=== PATIENT | male | born 1985 | race Caucasian/White ===

== ENCOUNTER 2017-01-13 14:01 | Emergency (ER) | payer OTHER ==
--- NOTE | 2017-01-13 14:33 | ED ---
Male Urogenital HPI - General Chief complaint: Urogenital Stated complaint: Male Time Seen by Provider: 01/13/17 14:18 Source: patient Mode of arrival: ambulatory Limitations: no limitations - History of Present Illness Initial comments: This 31-year-old white male presents with a complaint of some urinary frequency and urgency but denies any dysuria or hematuria. He states that it started approximately 3 days ago. He denies any penile discharge. There is no abdominal or flank pain. No fevers or chills. He denies any previous similar incidents. He has no known problems in regard to his collecting system or prostate. No other complaints or modifying factors. - Related Data Previous Rx's Medication Instructions Recorded Ciprofloxacin HCl [Cipro] 500 mg PO Q12HR #14 tablet 01/13/17 Phenazopyridine [Pyridium] 200 mg PO TID #9 tablet 01/13/17 Allergies Allergy/AdvReac Type Severity Reaction Status Date / Time No Known Allergies Allergy Verified 01/13/17 14:34 Review of Systems ROS Statement: Those systems with pertinent positive or pertinent negative responses have been documented in the HPI. ROS Other: All systems not noted in ROS Statement are negative. Past Medical History Past Medical History: No Reported History History of Any Multi-Drug Resistant Organisms: None Reported Past Surgical History: No Surgical Hx Reported Past Psychological History: No Psychological Hx Reported Smoking Status: Never smoker Past Alcohol Use History: None Reported Past Drug Use History: Marijuana General Exam - General Exam Comments Initial Comments: GENERAL: The patient is well nourished and well hydrated. VITAL SIGNS: Heart rate, blood pressure, respiratory rate reviewed as recorded in nurse's notes. EYES: Pupils are round and reactive. Extraocular movements are intact. No conjunctival / lid redness or swelling. ENT: No external evidence of injury, swelling, or ecchymosis. Airway is patent. Throat is clear. NECK: Nontender. No swelling or evidence of injury. No subcutaneous emphysema. Trachea is midline. No thyroid mass. HEART: Regular rate and rhythm. Good peripheral pulses. LUNGS/CHEST: Breath sounds clear and equal bilaterally. No rales, rhonchi, or wheezes. No ecchymosis, subcutaneous emphysema, or tenderness. ABDOMEN: Abdomen soft without tenderness. No palpable masses or organomegaly. No peritoneal signs. No abdominal wall swelling or ecchymosis. EXTREMITIES: No extremity tenderness. Normal muscle tone and function. No thoracolumbar tenderness. NEUROLOGIC: Sensation is grossly intact. Cranial nerve exam reveals face is symmetrical, tongue is midline, speech is clear. SKIN: No abrasions or ecchymosis is noted. No induration or masses noted. PSYCHIATRIC: Alert and oriented. Appropriate behavior and judgment. Limitations: no limitations Course Vital Signs 01/13/17 14:08 Temperature 98.2 F Pulse Rate 95 Respiratory 16 Rate Blood Pressure 134/90 O2 Sat by Pulse 100 Oximetry Medical Decision Making - Medical Decision Making The patient was seen and examined. All diagnostics were reviewed. The urinalysis does show evidence of urinary tract infection. He'll be treated for this. He requests a work note and this will be given as well. He leaves in no identifiable distress. He is instructed to follow up with the cultures in 3 days with a primary physician. - Lab Data Lab Results 01/13/17 Range/Units 14:53 Urine Color Light Yellow Urine Appearance Cloudy (Clear) Urine pH 8.0 (5.0-8.0) Ur Specific [place] 1.013 (1.001-1.035) Urine Protein Negative (Negative) Urine Glucose (UA) Negative (Negative) Urine Ketones Negative (Negative) Urine Blood Negative (Negative) Urine Nitrite Negative (Negative) Urine Bilirubin Negative (Negative) Urine Urobilinogen <2.0 (<2.0) mg/dL Ur Leukocyte Esterase Negative (Negative) Urine WBC 5 (0-5) /hpf Amorphous Sediment Rare H (None) /hpf Urine Bacteria Many H (None) /hpf Disposition Clinical Impression: UTI (urinary tract infection) Disposition: HOME SELF-CARE Condition: Good Instructions: Urinary Tract Infection in Men (ED) Prescriptions: Ciprofloxacin HCl [Cipro] 500 mg PO Q12HR #14 tablet Phenazopyridine [Pyridium] 200 mg PO TID #9 tablet Referrals: None,Stated [Primary Care Provider] - 01/16/17 Time of Disposition: 15:25
[2017-01-13 15:15] LABS: Amorphous Sediment,Urine Rare /hpf; Appearance,Urine Cloudy (Clear); Bacteria,Urine Many /hpf; Bilirubin,Urine Negative (Negative); Glucose,Urine (UA) Negative (Negative); Ketones,Urine Negative (Negative); Leukocyte Esterase,Urine Negative (Negative); Nitrite,Urine Negative (Negative); Particle Count 29079; Protein,Urine Negative (Negative); Specific Gravity,Urine 1.013 (1.001-1.035); UA Billing (MACRO vs. MICRO) MICRO; Urobilinogen,Urine <2.0 mg/dL (<2.0); WBC,Urine 5 /hpf (0-5)
[2017-01-13 15:38] VITALS: BP 133/75; PULSE 85; RESP 18; TEMP 98.6
== END 2017-01-13 15:38 | disposition home or self-care (01) ==
LOC: EC 14:01
DX: N39.0 Urinary tract infection, site not specified (principal)
CPT/HCPCS: 81001; 87086; 99283

== ENCOUNTER 2017-12-15 19:15 | Emergency (ER) | payer BC ==
[2017-12-15 19:28] VITALS: TEMP 99.5
[2017-12-15] MEDS ORDERED: SODIUM CHLORIDE 0.9% 1,000 ML IV STA (21:36)
[2017-12-15 22:14] LABS: Basophils # (A) 0.1 k/uL (0-0.2); Basophils % (A) 1 %; Eosinophils # (A) 0.1 k/uL (0-0.7); Eosinophils % (A) 1 %; HCT 46.6 % (39.0-53.0); HGB 15.8 gm/dL (13.0-17.5); Lymphocytes # (A) 1.7 k/uL (1.0-4.8); Lymphocytes % (A) 17 %; MCH 29.5 pg (25.0-35.0); MCV 86.8 fL (80.0-100.0); Mean Platelet Volume 6.5; Monocytes # (A) 0.8 k/uL (0-1.0); Monocytes % (A) 8 %; Neutrophils # (A) 7.1 k/uL (1.3-7.7); Neutrophils % (A) 71 %; Platelet Count 232 k/uL (150-450); RBC 5.37 m/uL (4.30-5.90); RDW 13.1 % (11.5-15.5); WBC 9.9 k/uL (3.8-10.6)
[2017-12-15 22:22] LABS: ALT 32 U/L (21-72); AST 25 U/L (17-59); Albumin 4.4 g/dL (3.5-5.0); Alkaline Phosphatase 47 U/L (38-126); Anion Gap 6 mmol/L; Blood Urea Nitrogen 14 mg/dL (9-20); Calcium 9.5 mg/dL (8.4-10.2); Carbon Dioxide 27 mmol/L (22-30); Chloride 110 mmol/L (98-107); Glucose 81 mg/dL (74-99); Lipase 154 U/L (23-300); Potassium 3.8 mmol/L (3.5-5.1); Sodium 143 mmol/L (137-145); Total Bilirubin 0.3 mg/dL (0.2-1.3); Total Protein 6.6 g/dL (6.3-8.2)
[2017-12-15 22:32] LABS: INR 1.1 (<1.2); Partial Thromboplastin Time 24.8 sec (22.0-30.0); Prothrombin Time 10.9 sec (9.0-12.0)
[2017-12-15 22:41] LABS: Creatine Kinase 136 U/L (55-170)
[2017-12-15 22:54] LABS: Creatine Kinase MB 2.1 ng/mL (0.0-2.4); Troponin I <0.012 ng/mL (0.000-0.034)
[2017-12-15 23:04] LABS: Amorphous Sediment,Urine Rare /hpf; Appearance,Urine Cloudy (Clear); Bilirubin,Urine Negative (Negative); Blood,Urine Negative (Negative); Color,Urine Light Yellow; Glucose,Urine (UA) Negative (Negative); Ketones,Urine Negative (Negative); Leukocyte Esterase,Urine Negative (Negative); Mucus,Urine Rare /hpf; Nitrite,Urine Negative (Negative); PH, Urine 6.5 (5.0-8.0); Protein,Urine Negative (Negative); Specific Gravity,Urine 1.013 (1.001-1.035); Squamous Epithelial Cell,Urine <1 /hpf (0-4); Urobilinogen,Urine <2.0 mg/dL (<2.0); WBC,Urine <1 /hpf (0-5)
--- NOTE | 2017-12-15 23:17 | ED ---
Abdominal Pain HPI - General Chief Complaint: Abdominal Pain Stated Complaint: blood in stool Time Seen by Provider: 12/15/17 20:55 Source: patient Mode of arrival: ambulatory Limitations: no limitations - History of Present Illness Initial Comments: 32-year-old male patient presents the emergency department today for complaints of abdominal discomfort and bloody stools. Patient states that early this afternoon he had an episode of diarrhea, states when he wiped he noticed bright red blood on the toilet paper. States he did not look in the toilet so is unable to quantify how much bleeding he had. Patient states that he had 2 further episodes of diarrhea with presence of bright red blood while at work this evening. Patient states he is having lower abdominal cramping. He is also reporting a sharp right upper quadrant abdominal pain that started couple of weeks ago. States that the pain is constantly there and hurts worse when he pushes over the area. Patient denies any nausea, vomiting, dizziness, weakness , chest pain, shortness breath, hematuria, dysuria, urinary frequency, or urinary urgency. Patient states that he has been having an issue where he has to sit down to urinate, this started a couple of months ago he has not figured out the cause for this. Patient denies any history of GI bleeding or hemorrhoids. Denies any recent weight loss. Denies any significant alcohol use. Patient does report a family history of colon cancer, with his uncle dying at the age of 43. Patient denies any recent rash, back pain, numbness, tingling, headache, visual changes, or any other complaints. - Related Data Home Medications Medication Instructions Recorded Confirmed No Known Home Medications 12/15/17 12/15/17 Allergies Allergy/AdvReac Type Severity Reaction Status Date / Time No Known Allergies Allergy Verified 12/15/17 20:39 Review of Systems ROS Statement: Those systems with pertinent positive or pertinent negative responses have been documented in the HPI. ROS Other: All systems not noted in ROS Statement are negative. Past Medical History Past Medical History: No Reported History History of Any Multi-Drug Resistant Organisms: None Reported Past Surgical History: No Surgical Hx Reported Past Psychological History: No Psychological Hx Reported Smoking Status: Never smoker Past Alcohol Use History: None Reported Past Drug Use History: Marijuana General Exam Limitations: no limitations General appearance: alert, in no apparent distress, other (This is a well- developed, well-nourished adult male patient in no acute distress. Vital signs upon presentation afternoon and 0.5F, pulse 114, respirations 20, blood pressure 143/84, pulse ox 99% on room air.) Eye exam: Present: normal appearance, PERRL, EOMI. Absent: scleral icterus, conjunctival injection, periorbital swelling ENT exam: Present: normal exam, normal oropharynx, mucous membranes moist Respiratory exam: Present: normal lung sounds bilaterally. Absent: respiratory distress, wheezes, rales, rhonchi, stridor Cardiovascular Exam: Present: regular rate, normal rhythm, normal heart sounds. Absent: systolic murmur, diastolic murmur, rubs, gallop, clicks GI/Abdominal exam: Present: soft, tenderness (Right upper quadrant tenderness), normal bowel sounds. Absent: distended, guarding, rebound, rigid Rectal exam: Present: normal inspection, heme (+) stool. Absent: hemorrhoids Neurological exam: Present: alert, oriented X3, CN II-XII intact Psychiatric exam: Present: normal affect, normal mood Skin exam: Present: warm, dry, intact, normal color. Absent: rash Course Vital Signs 12/15/17 12/15/17 19:26 23:29 Temperature 99.5 F Pulse Rate 114 H 100 Respiratory 20 17 Rate Blood Pressure 143/84 142/89 O2 Sat by Pulse 99 97 Oximetry Medical Decision Making - Medical Decision Making 32-year-old male patient presented to the emergency department today for evaluation of a GI bleed. Physical examination did reveal some right upper quadrant abdominal tenderness. Did perform rectal examination had obvious bright red blood per rectum. There is no evidence of hemorrhoids. Labs reviewed and are unremarkable. Hemoglobin is within normal range. EKG was obtained and showed normal sinus rhythm with a sinus arrhythmia. Patient was given some IV fluids. Upon reevaluation he is doing well. I did discuss findings and results. We did discuss colitis as a possible cause of his symptoms however given patient's family history of colon cancer this is a concern as well. He is instructed to follow-up with a driving teacher for recheck as soon as possible. Given his urinary symptoms that have been going on for the last couple of months he is instructed to follow-up with the urologist as well. He is instructed to follow up with the primary care physician for recheck in 1-2 days. Patient be discharged in stable condition. Return parameters discussed in detail. He verbalizes understanding and agrees with this plan. - Lab Data Result diagrams: 12/15/17 21:57 12/15/17 21:57 Lab Results 12/15/17 12/15/17 12/15/17 Range/Units 21:52 21:57 21:57 WBC 9.9 (3.8-10.6) k/uL RBC 5.37 (4.30-5.90) m/uL Hgb 15.8 (13.0-17.5) gm/dL Hct 46.6 (39.0-53.0) % MCV 86.8 (80.0-100.0) fL MCH 29.5 (25.0-35.0) pg MCHC 34.0 (31.0-37.0) g/dL RDW 13.1 (11.5-15.5) % Plt Count 232 (150-450) k/uL Neutrophils % 71 % Lymphocytes % 17 % Monocytes % 8 % Eosinophils % 1 % Basophils % 1 % Neutrophils # 7.1 (1.3-7.7) k/uL Lymphocytes # 1.7 (1.0-4.8) k/uL Monocytes # 0.8 (0-1.0) k/uL Eosinophils # 0.1 (0-0.7) k/uL Basophils # 0.1 (0-0.2) k/uL PT (9.0-12.0) sec INR (<1.2) APTT (22.0-30.0) sec Sodium (137-145) mmol/L Potassium (3.5-5.1) mmol/L Chloride (98-107) mmol/L Carbon Dioxide (22-30) mmol/L Anion Gap mmol/L BUN (9-20) mg/dL Creatinine (0.66-1.25) mg/dL Est GFR (CKD-EPI)AfAm (>60 ml/min/1.73 sqM) Est GFR (CKD-EPI)NonAf (>60 ml/min/1.73 sqM) Glucose (74-99) mg/dL Calcium (8.4-10.2) mg/dL Total Bilirubin (0.2-1.3) mg/dL AST (17-59) U/L ALT (21-72) U/L Alkaline Phosphatase (38-126) U/L Total Creatine Kinase 136 (55-170) U/L CK-MB (CK-2) 2.1 (0.0-2.4) ng/mL CK-MB (CK-2) Rel Index 1.5 Troponin I <0.012 (0.000-0.034) ng/mL Total Protein (6.3-8.2) g/dL Albumin (3.5-5.0) g/dL Lipase (23-300) U/L Urine Color Urine Appearance (Clear) Urine pH (5.0-8.0) Ur Specific [place] (1.001-1.035) Urine Protein (Negative) Urine Glucose (UA) (Negative) Urine Ketones (Negative) Urine Blood (Negative) Urine Nitrite (Negative) Urine Bilirubin (Negative) Urine Urobilinogen (<2.0) mg/dL Ur Leukocyte Esterase (Negative) Urine WBC (0-5) /hpf Ur Squamous Epith Cells (0-4) /hpf Amorphous Sediment (None) /hpf Urine Mucus (None) /hpf Stool Occult Blood Positive (Negative) 12/15/17 12/15/17 12/15/17 Range/Units 21:57 21:57 22:54 WBC (3.8-10.6) k/uL RBC (4.30-5.90) m/uL Hgb (13.0-17.5) gm/dL Hct (39.0-53.0) % MCV (80.0-100.0) fL MCH (25.0-35.0) pg MCHC (31.0-37.0) g/dL RDW (11.5-15.5) % Plt Count (150-450) k/uL Neutrophils % % Lymphocytes % % Monocytes % % Eosinophils % % Basophils % % Neutrophils # (1.3-7.7) k/uL Lymphocytes # (1.0-4.8) k/uL Monocytes # (0-1.0) k/uL Eosinophils # (0-0.7) k/uL Basophils # (0-0.2) k/uL PT 10.9 (9.0-12.0) sec INR 1.1 (<1.2) APTT 24.8 (22.0-30.0) sec Sodium 143 (137-145) mmol/L Potassium 3.8 (3.5-5.1) mmol/L Chloride 110 H (98-107) mmol/L Carbon Dioxide 27 (22-30) mmol/L Anion Gap 6 mmol/L BUN 14 (9-20) mg/dL Creatinine 0.90 (0.66-1.25) mg/dL Est GFR (CKD-EPI)AfAm >90 (>60 ml/min/1.73 sqM) Est GFR (CKD-EPI)NonAf >90 (>60 ml/min/1.73 sqM) Glucose 81 (74-99) mg/dL Calcium 9.5 (8.4-10.2) mg/dL Total Bilirubin 0.3 (0.2-1.3) mg/dL AST 25 (17-59) U/L ALT 32 (21-72) U/L Alkaline Phosphatase 47 (38-126) U/L Total Creatine Kinase (55-170) U/L CK-MB (CK-2) (0.0-2.4) ng/mL CK-MB (CK-2) Rel Index Troponin I (0.000-0.034) ng/mL Total Protein 6.6 (6.3-8.2) g/dL Albumin 4.4 (3.5-5.0) g/dL Lipase 154 (23-300) U/L Urine Color Light Yellow Urine Appearance Cloudy (Clear) Urine pH 6.5 (5.0-8.0) Ur Specific [place] 1.013 (1.001-1.035) Urine Protein Negative (Negative) Urine Glucose (UA) Negative (Negative) Urine Ketones Negative (Negative) Urine Blood Negative (Negative) Urine Nitrite Negative (Negative) Urine Bilirubin Negative (Negative) Urine Urobilinogen <2.0 (<2.0) mg/dL Ur Leukocyte Esterase Negative (Negative) Urine WBC <1 (0-5) /hpf Ur Squamous Epith Cells <1 (0-4) /hpf Amorphous Sediment Rare H (None) /hpf Urine Mucus Rare H (None) /hpf Stool Occult Blood (Negative) Disposition Clinical Impression: Lower GI bleed, Abdominal pain Disposition: HOME SELF-CARE Condition: Good Instructions: Gastrointestinal Bleeding (ED), Abdominal Pain (ED) Additional Instructions: Increase fluids. Follow up with gastroenterology for further evaluation as soon as possible. Return here immediately for any new, worsening, or concerning symptoms. Is patient prescribed a controlled substance at d/c from ED?: No Referrals: Ameya Gillespie MD [STAFF PHYSICIAN] - 1-2 days Cristo Parks MD [STAFF PHYSICIAN] - 1-2 days Time of Disposition: 23:17
[2017-12-15 23:30] VITALS: BP 142/89; PULSE 100; RESP 17
== END 2017-12-15 23:30 | disposition home or self-care (01) ==
LOC: EC 19:15
DX: K92.2 Gastrointestinal hemorrhage, unspecified (principal); R10.11 Right upper quadrant pain; R10.30 Lower abdominal pain, unspecified; R19.7 Diarrhea, unspecified
CPT/HCPCS: 36415; 80053; 81001; 82272; 82550; 82553; 83690; 84484; 85025; 85610; 85730; 93005; 96360; 99284

== ENCOUNTER 2020-11-13 11:35 | Observation (INO) | payer BC, OTHER ==
[2020-11-13] MEDS ORDERED: MORPHINE SULFATE 4 MG/ML SYRINGE IV STA (13:15)
[2020-11-13] MEDS ORDERED: ONDANSETRON 4 MG/2 ML VIAL IVP STA (13:15)
[2020-11-13] MEDS ORDERED: SODIUM CHLORIDE 0.9% 2,000 ML IV STA (13:15)
--- NOTE | 2020-11-13 13:15 | ED ---
Abdominal Pain HPI - General Chief Complaint: Abdominal Pain Stated Complaint: fever/vomiting/dizzy Time Seen by Provider: 11/13/20 12:32 Source: patient Mode of arrival: ambulatory Limitations: no limitations - History of Present Illness Initial Comments: 35-year-old male with no past medical history of presents emergency Department with reported right upper quadrant abdominal pain, nausea and vomiting. Patient states the symptoms have been present for the past 2 days. He has had diaphoresis and chills. He has not had a bowel movement in several days. Patient unable to hold on any type of food. Vomiting is nonbilious and nonbloody. No history of similar in the past. Denies any abdominal surgeries. Has not taken any medications for his symptoms. No ripping or tearing sensation to his back. Denies any urinary changes. No other alleviating, Perceptin or modifying factors - Related Data Home Medications Medication Instructions Recorded Confirmed No Known Home Medications 12/15/17 11/13/20 Allergies Allergy/AdvReac Type Severity Reaction Status Date / Time No Known Allergies Allergy Verified 11/13/20 13:21 Review of Systems ROS Statement: Those systems with pertinent positive or pertinent negative responses have been documented in the HPI. ROS Other: All systems not noted in ROS Statement are negative. Past Medical History Past Medical History: No Reported History History of Any Multi-Drug Resistant Organisms: None Reported Past Surgical History: No Surgical Hx Reported Past Psychological History: No Psychological Hx Reported Smoking Status: Never smoker Past Alcohol Use History: None Reported Past Drug Use History: Marijuana General Exam Limitations: no limitations Course Vital Signs 11/13/20 12:07 Temperature 98.7 F Pulse Rate 97 Respiratory 18 Rate Blood Pressure 129/85 O2 Sat by Pulse 99 Oximetry Medical Decision Making - Medical Decision Making Upon arrival patient's placed in room 17. Thorough history and physical exam is performed. IV is established. Laboratory studies are conducted. Patient received 2 L of normal saline. 4 mg of morphine administered as well as 4 mg of Zofran. Retrace is reviewed and demonstrate an elevated AST and ALT. CT the abdomen and pelvis demonstrates duodenitis versus duodenal ulcer. Gallbladder ultrasound demonstrates heterogeneous liver. Patient is reevaluated and continu es to have abdominal pain. Provided the patient with 1 mg of Dilaudid. Spoke with Dr. Forrest who agreed to admission. Patient started on antibiotics, pain control and antiemetics. Patient currently awaiting the floor - Lab Data Result diagrams: 11/13/20 13:24 11/13/20 13:24 Lab Results 11/13/20 11/13/20 11/13/20 Range/Units 13:24 13:24 13:24 WBC 4.2 (3.8-10.6) k/uL RBC 5.79 (4.30-5.90) m/uL Hgb 16.3 (13.0-17.5) gm/dL Hct 49.2 (39.0-53.0) % MCV 85.0 (80.0-100.0) fL MCH 28.2 (25.0-35.0) pg MCHC 33.2 (31.0-37.0) g/dL RDW 13.5 (11.5-15.5) % Plt Count 105 L (150-450) k/uL MPV 8.1 Neutrophils % 75 % Lymphocytes % 14 % Monocytes % 6 % Eosinophils % 1 % Basophils % 1 % Neutrophils # 3.1 (1.3-7.7) k/uL Lymphocytes # 0.6 L (1.0-4.8) k/uL Monocytes # 0.2 (0-1.0) k/uL Eosinophils # 0.0 (0-0.7) k/uL Basophils # 0.0 (0-0.2) k/uL Sodium 138 (137-145) mmol/L Potassium 3.1 L (3.5-5.1) mmol/L Chloride 101 (98-107) mmol/L Carbon Dioxide 29 (22-30) mmol/L Anion Gap 8 mmol/L BUN 10 (9-20) mg/dL Creatinine 0.61 L (0.66-1.25) mg/dL Est GFR (CKD-EPI)AfAm >90 (>60 ml/min/1.73 sqM) Est GFR (CKD-EPI)NonAf >90 (>60 ml/min/1.73 sqM) Glucose 110 H (74-99) mg/dL Plasma Lactic Acid [place] 0.7 (0.7-2.0) mmol/L Calcium 8.7 (8.4-10.2) mg/dL Total Bilirubin 1.4 H (0.2-1.3) mg/dL AST 263 H (17-59) U/L ALT 393 H (4-49) U/L Alkaline Phosphatase 161 H (38-126) U/L Troponin I (0.000-0.034) ng/mL Total Protein 6.3 (6.3-8.2) g/dL Albumin 3.8 (3.5-5.0) g/dL Lipase 77 (23-300) U/L 11/13/20 Range/Units 13:24 WBC (3.8-10.6) k/uL RBC (4.30-5.90) m/uL Hgb (13.0-17.5) gm/dL Hct (39.0-53.0) % MCV (80.0-100.0) fL MCH (25.0-35.0) pg MCHC (31.0-37.0) g/dL RDW (11.5-15.5) % Plt Count (150-450) k/uL MPV Neutrophils % % Lymphocytes % % Monocytes % % Eosinophils % % Basophils % % Neutrophils # (1.3-7.7) k/uL Lymphocytes # (1.0-4.8) k/uL Monocytes # (0-1.0) k/uL Eosinophils # (0-0.7) k/uL Basophils # (0-0.2) k/uL Sodium (137-145) mmol/L Potassium (3.5-5.1) mmol/L Chloride (98-107) mmol/L Carbon Dioxide (22-30) mmol/L Anion Gap mmol/L BUN (9-20) mg/dL Creatinine (0.66-1.25) mg/dL Est GFR (CKD-EPI)AfAm (>60 ml/min/1.73 sqM) Est GFR (CKD-EPI)NonAf (>60 ml/min/1.73 sqM) Glucose (74-99) mg/dL Plasma Lactic Acid [place] (0.7-2.0) mmol/L Calcium (8.4-10.2) mg/dL Total Bilirubin (0.2-1.3) mg/dL AST (17-59) U/L ALT (4-49) U/L Alkaline Phosphatase (38-126) U/L Troponin I <0.012 (0.000-0.034) ng/mL Total Protein (6.3-8.2) g/dL Albumin (3.5-5.0) g/dL Lipase (23-300) U/L Disposition Clinical Impression: Abdominal pain, Transaminitis, Duodenitis Disposition: ADMITTED IP TO THIS [facility] Condition: Stable Is patient prescribed a controlled substance at d/c from ED?: No Referrals: None,Stated [Primary Care Provider] - 1-2 days Decision to Admit Reason: Admit from EC Decision Date: 11/13/20 Decision Time: 16:09
[2020-11-13 13:45] LABS: Basophils % (A) 1 %; Eosinophils % (A) 1 %; HCT 49.2 % (39.0-53.0); HGB 16.3 gm/dL (13.0-17.5); Lymphocytes # (A) 0.6 k/uL (1.0-4.8); Lymphocytes % (A) 14 %; MCH 28.2 pg (25.0-35.0); MCHC 33.2 g/dL (31.0-37.0); Mean Platelet Volume 8.1; Monocytes # (A) 0.2 k/uL (0-1.0); Monocytes % (A) 6 %; Neutrophils # (A) 3.1 k/uL (1.3-7.7); Neutrophils % (A) 75 %; Platelet Count 105 k/uL (150-450); RBC 5.79 m/uL (4.30-5.90); RDW 13.5 % (11.5-15.5); WBC 4.2 k/uL (3.8-10.6)
[2020-11-13 13:58] LABS: ALT 393 U/L (4-49); AST 263 U/L (17-59); African American GFR (CKD) >90 (>60 ml/min/1.73 sqM); Albumin 3.8 g/dL (3.5-5.0); Alkaline Phosphatase 161 U/L (38-126); Anion Gap 8 mmol/L; Blood Urea Nitrogen 10 mg/dL (9-20); Calcium 8.7 mg/dL (8.4-10.2); Carbon Dioxide 29 mmol/L (22-30); Chloride 101 mmol/L (98-107); Glucose 110 mg/dL (74-99); Lipase 77 U/L (23-300); Non-African American GFR(CKD) >90 (>60 ml/min/1.73 sqM); Potassium 3.1 mmol/L (3.5-5.1); Sodium 138 mmol/L (137-145); Total Bilirubin 1.4 mg/dL (0.2-1.3); Total Protein 6.3 g/dL (6.3-8.2)
--- NOTE | 2020-11-13 14:19 | CT ---
EXAMINATION TYPE: CT abdomen pelvis w con DATE OF EXAM: 11/13/2020 COMPARISON: None HISTORY: Severe epigastric pain CT DLP: 1586.1 mGycm CONTRAST: CT scan of the abdomen and pelvis is performed without Oral Contrast and with IV Contrast, patient in jected with 100 mL of Isovue 300. FINDINGS: LUNG BASES-: No visible nodule. No infiltrate. LIVER/GB: No calcified gallstones. No space occupying hepatic lesion. Biliary tree is of normal ca liber. PANCREAS: No inflammation. No distinct mass. SPLEEN: Splenomegaly No lesion seen. ADRENALS: No nodule. No thickening. KIDNEYS/BLADDER: No hydronephrosis. No nephrolithiasis. No distinct renal mass. Urinary bladder g rossly unremarkable. BOWEL: Normal appendix. Normal bowel caliber. There is mild strandy attenuation noted adjacent to th e duodenal bulb and descending portion of the duodenum which may reflect underlying ulcer or duodenit is. GENITAL ORGANS: No gross abnormality. LYMPH NODES: No greater than 1cm abdominal or pelvic lymph nodes are appreciated. AORTA: No significant abnormality. OSSEOUS STRUCTURES: No significant abnormality is seen. OTHER: No significant additional abnormality is seen. IMPRESSION: 1. There is mild strandy attenuation noted adjacent to the duodenal bulb and descending portion of th e duodenum which may reflect underlying ulcer or duodenitis.
[2020-11-13] MEDS ORDERED: POTASSIUM CHLORIDE ER 20 MEQ TAB.ER PO STA (14:42)
--- NOTE | 2020-11-13 15:08 | US ---
EXAMINATION TYPE: US gallbladder DATE OF EXAM: 11/13/2020 COMPARISON: Same day CT CLINICAL HISTORY: pain. Pt states ABD pain EXAM MEASUREMENTS: Liver Length: 18.6 cm Gallbladder Wall: 0.2 cm CBD: 0.6 cm Right Kidney: 10.7 x 5.0 x 5.7 cm Pancreas: Obscured by bowel gas Liver: Heterogeneous, slightly enlarged Gallbladder: wnl Evidence for sonographic Lao's sign: No CBD: wnl Right Kidney: wnl IMPRESSION: 1. Heterogeneous, echogenic liver is nonspecific but most commonly seen with hepatic steatosis. Pleas e correlate clinically.
[2020-11-13] MEDS ORDERED: HYDROmorphone 1 MG/ML 1 ML SYRINGE IVP STA (15:51)
[2020-11-13] MEDS ORDERED: NALOXONE 0.4 MG/ML 1 ML VIAL IV PRN (16:09)
[2020-11-13] MEDS: ONDANSETRON 4 MG/2 ML VIAL IVP PRN (17:23)
[2020-11-13] MEDS: PIPERACILLIN-TAZOBACTAM 3.375 GM in SODIUM CHLORIDE 0.9% 100 ML IVPB SCH ×2 (17:30→23:21)
[2020-11-13] MEDS: HYDROmorphone 1 MG/ML 1 ML SYRINGE IVP PRN (21:06)
[2020-11-13] MEDS: SODIUM CHLORIDE 0.9% 1,000 ML IV SCH (21:27)
[2020-11-14] MEDS: SODIUM CHLORIDE 0.9% 1,000 ML IV SCH ×3 (01:04→16:40)
[2020-11-14] MEDS: HYDROmorphone 1 MG/ML 1 ML SYRINGE IVP PRN ×7 (01:30→20:32)
[2020-11-14 03:44] LABS: Appearance,Urine Clear (Clear); Bacteria,Urine Rare /hpf; Bilirubin,Urine Negative (Negative); Blood,Urine Trace (Negative); Color,Urine Yellow; Glucose,Urine (UA) Negative (Negative); Ketones,Urine 1+ (Negative); Leukocyte Esterase,Urine Negative (Negative); Mucus,Urine Rare /hpf; Nitrite,Urine Negative (Negative); Protein,Urine Trace (Negative); RBC,Urine 3 /hpf (0-5); WBC,Urine 2 /hpf (0-5)
[2020-11-14] MEDS: ONDANSETRON 4 MG/2 ML VIAL IVP PRN ×2 (05:23→13:10)
[2020-11-14 06:11] LABS: Basophils # (A) 0.1 k/uL (0-0.2); Basophils % (A) 1 %; Eosinophils % (A) 1 %; HCT 46.8 % (39.0-53.0); HGB 16.1 gm/dL (13.0-17.5); Lymphocytes % (A) 18 %; MCH 29.4 pg (25.0-35.0); MCHC 34.4 g/dL (31.0-37.0); MCV 85.5 fL (80.0-100.0); Mean Platelet Volume 7.9; Monocytes # (A) 0.5 k/uL (0-1.0); Monocytes % (A) 9 %; Neutrophils % (A) 68 %; Platelet Count 116 k/uL (150-450); RBC 5.47 m/uL (4.30-5.90); RDW 13.2 % (11.5-15.5); WBC 5.9 k/uL (3.8-10.6)
[2020-11-14] MEDS: PIPERACILLIN-TAZOBACTAM 3.375 GM in SODIUM CHLORIDE 0.9% 100 ML IVPB SCH ×2 (07:56→14:54)
[2020-11-14] MEDS: PANTOPRAZOLE 40 MG/10 ML VIAL IVP SCH ×2 (08:10→20:28)
[2020-11-14] MEDS: HEPARIN SODIUM,PORCINE/PF 5,000 UNIT/0.5 ML SYRINGE SQ SCH ×2 (08:10→20:29)
[2020-11-14] MEDS: traMADol 50 MG TAB PO PRN ×2 (10:04→20:32)
[2020-11-14] MEDS ORDERED: POTASSIUM CHLORIDE ER 20 MEQ TAB.ER PO STA (12:37)
--- NOTE | 2020-11-14 12:43 | P.CONS ---
History of Present Illness - Reason for Consult Hypokalemia, gastritis, duodenitis - History of Present Illness Patient is a 35-year-old male came in with compensative right upper quadrant abdominal pain sharp in nature moderate to severe associated nausea vomiting has been going on for 2 days multiple episodes of nausea vomiting no hematemesis vomiting is nonbilious and nonbloody denied any fever chills diaphoresis patient had an abdominal CT which was concerning for duodenitis ultrasound of the abdome n did not show any gallstones but did show steatohepatitis, patient does have elevated liver enzymes patient is bit tachycardic patient was also started on Zosyn by general surgery who is a primary service. He was bit dehydrated and tachycardic on admission which improved with IV fluids REVIEW OF SYSTEMS: CONSTITUTIONAL: No fever, no malaise, no fatigue. HEENT: No recent visual problems or hearing problems. Denied any sore throat. CARDIOVASCULAR: No chest pain, orthopnea, PND, no palpitations, no syncope. PULMONARY: No shortness of breath, no cough, no hemoptysis. GASTROINTESTINAL: As mentioned in HPI NEUROLOGICAL: No headaches, no weakness, no numbness. HEMATOLOGICAL: Denies any bleeding or petechiae. GENITOURINARY: Denies any burning micturition, frequency, or urgency. MUSCULOSKELETAL/RHEUMATOLOGICAL: Denies any joint pain, swelling, or any muscle pain. ENDOCRINE: Denies any polyuria or polydipsia. The rest of the 14-point review of systems is negative. PHYSICAL EXAMINATION: GENERAL: The patient is alert and oriented x3, not in any acute distress. Obese HEENT: Pupils are round and equally reacting to light. EOMI. No scleral icterus. No conjunctival pallor. Normocephalic, atraumatic. No pharyngeal erythema. No thyromegaly. CARDIOVASCULAR: S1 and S2 present. No murmurs, rubs, or gallops. PULMONARY: Chest is clear to auscultation, no wheezing or crackles. ABDOMEN: Soft mild right upper quadrant tenderness nondistended, normoactive bowel sounds. No palpable organomegaly. MUSCULOSKELETAL: No joint swelling or deformity. EXTREMITIES: No cyanosis, clubbing, or pedal edema. NEUROLOGICAL: Gross neurological examination did not reveal any focal deficits. SKIN: No rashes. Assessment and plan -Abdominal pain and right upper quadrant and probably duodenitis patient is being the treated for infectious etiologies as well and patient isn't presently on antibiotics. Patient is on Protonix twice a day which is appropriate patient will undergo upper GI endoscopy tomorrow -Elevated liver enzymes patient has stated hepatitis AST and ALT ratio is consis tent with nonalcoholic steatohepatitis. -Hypokalemia secondary to nausea vomiting and mild dehydration patient received 40 mg of potassium will give him 60 more milligrams patient is getting 1 30 mL o f normal saline and his potassium is expected to go down again tomorrow because of natriuretic hypokalemia and the potassium will be replaced accordingly -Tachycardia secondary to dehydration improved with IV fluids DVT prophylaxis: Early ambulation Past Medical History Past Medical History: No Reported History History of Any Multi-Drug Resistant Organisms: None Reported Past Surgical History: No Surgical Hx Reported Additional Past Surgical History / Comment(s): 3 abscessed teeth removed 10/2020 Past Anesthesia/Blood Transfusion Reactions: No Reported Reaction Past Psychological History: No Psychological Hx Reported Smoking Status: Never smoker Past Alcohol Use History: None Reported Past Drug Use History: None Reported - Past Family History Father Additional Family Medical History / Comment(s): hepatitis, cirrhosis. from a hemorrhage- unsure of what kind Mother Family Medical History: Congestive Heart Failure (CHF), COPD Additional Family Medical History / Comment(s): emphysema, . Medications and Allergies Home Medications Medication Instructions Recorded Confirmed Type No Known Home Medications 12/15/17 11/13/20 History Allergies Allergy/AdvReac Type Severity Reaction Status Date / Time No Known Allergies Allergy Verified 11/13/20 13:21 Physical Exam Vitals: Vital Signs Temp Pulse Pulse Resp BP BP BP 11/14/20 12:21 98.1 F 76 14 127/77 11/14/20 05:00 98.6 F 70 20 119/70 11/13/20 21:50 98.8 F 87 20 138/54 11/13/20 18:12 99.3 F 99 18 145/86 11/13/20 17:42 100.4 F H 105 H 18 131/81 Pulse Ox 11/14/20 12:21 97 11/14/20 05:00 96 11/13/20 21:50 92 L 11/13/20 18:12 94 L 11/13/20 17:42 95 Intake and Output 11/13/20 11/14/20 11/14/20 22:59 06:59 14:59 Intake Total 100 100 Output Total 400 Balance 100 -300 Intake: Oral 100 100 Output: Urine 400 Other: Voiding Method Toilet Toilet # Voids 2 Weight 114.305 kg Results CBC & Chem 7: 11/14/20 05:51 11/13/20 13:24 Labs: Abnormal Lab Results - Last 24 Hours (Table) 11/13/20 11/13/20 11/14/20 Range/Units 13:24 13:24 03:20 Plt Count 105 L (150-450) k/uL Lymphocytes # 0.6 L (1.0-4.8) k/uL Potassium 3.1 L (3.5-5.1) mmol/L Creatinine 0.61 L (0.66-1.25) mg/dL Glucose 110 H (74-99) mg/dL Total Bilirubin 1.4 H (0.2-1.3) mg/dL AST 263 H (17-59) U/L ALT 393 H (4-49) U/L Alkaline Phosphatase 161 H (38-126) U/L Urine Protein Trace H (Negative) Urine Ketones 1+ H (Negative) Urine Blood Trace H (Negative) Urine Bacteria Rare H (None) /hpf Urine Mucus Rare H (None) /hpf 11/14/20 Range/Units 05:51 Plt Count 116 L (150-450) k/uL Lymphocytes # (1.0-4.8) k/uL Potassium (3.5-5.1) mmol/L Creatinine (0.66-1.25) mg/dL Glucose (74-99) mg/dL Total Bilirubin (0.2-1.3) mg/dL AST (17-59) U/L ALT (4-49) U/L Alkaline Phosphatase (38-126) U/L Urine Protein (Negative) Urine Ketones (Negative) Urine Blood (Negative) Urine Bacteria (None) /hpf Urine Mucus (None) /hpf
[2020-11-14 13:47] LABS: African American GFR (CKD) 139.7 (60.0-200.0); Albumin 4.1 g/dL (3.80-4.90); Albumin/Globulin Ratio 1.95 (1.60-3.17); Anion Gap 14.5 mmol/L (4.00-12.00); BUN/Creat Ratio 12.86 Ratio (12.00-20.00); Calcium 8.2 mg/dL (8.7-10.3); Carbon Dioxide 23.5 mmol/L (21.6-31.8); Globulin 2.1 g/dL (1.6-3.3); Non-African American GFR(CKD) 120.6 (60.0-200.0); Potassium 3.6 mmol/L (3.5-5.5); Total Bilirubin 1.3 mg/dL (0.3-1.2); Total Protein 6.2 g/dL (6.2-8.2)
--- NOTE | 2020-11-14 14:08 | P.GSHP ---
History of Present Illness H&P Date: 11/14/20 CHIEF COMPLAINT: Abdominal pain HISTORY OF PRESENT ILLNESS: This is a 35-year-old male withno medical or surgical history. He presents to the hospital complaints of right upper quadrant, epigastric pain and pain across the upper abdomen for 4 days. He has been having nausea and vomiting. He has been having low-grade temps. He denies any hematemesis. He denies any diarrhea or constipation. He had a computed tomography scan of the abdomen and pelvis that shows mild strandy attenuation noted adjacent to the duodenal bulb and distending portion of the duodenum which may reflect underlying ulcer or duodenitis. Patient denies any previous history of duodenal or peptic ulcer disease. Denies any prior history of EGD. Patient did have a temp of 100.4 on admission and had been tachycardic with a heart rate of 105. Patient is currently on antibiotics. He also had been complaining of a headache. PAST MEDICAL HISTORY: See list. PAST SURGICAL HISTORY: See list. MEDICATIONS: See list. ALLERGIES: See list. SOCIAL HISTORY: No illicit drug use. REVIEW OF SYSTEMS: CONSTITUTIONAL: Denies fever or chills. HEENT: Denies blurred vision, vision changes, or eye pain. Denies hemoptysis CARDIOVASCULAR: Denies chest pain or pressure. RESPIRATORY: No shortness of breath. GASTROINTESTINAL: See HPI for pertinent findings HEMATOLOGIC: Denies bleeding disorders. GENITOURINARY: Denies any blood in urine or increased urinary frequency. SKIN: Denies pruitis. Denies rash. PHYSICAL EXAM: VITAL SIGNS: Reviewed GENERAL: Well-developed in no acute distress. HEENT: No sclera icterus. Extraocular movements grossly intact. Moist buccal mucosa. Head is atraumatic, normocephalic. No nasal drainage. ABDOMEN: Soft. Nondistended. Tenderness to palpation of the epigastric area NEUROLOGIC: Alert and oriented. Cranial nerves II through XII grossly intact. LABORATORY DATA: WBC is 5.9 hemoglobin 16.1 platelets 116 sodium 141 potassium is 3.6 creatinine 0.7 Lactate 0.7 Total bilirubin 1.4 down to 1.3 AST 263 down to 134 ALT 393 down to 335 alk phos 161 down to 152 troponin negative lipase 77 Urinalysis no evidence of infection IMAGING: Computed tomography scan findings as stated above Abdominal ultrasound shows a heterogeneous, echogenic liver is nonspecific but most commonly seen with hepatic steatosis ASSESSMENT: 1. Right upper quadrant and epigastric abdominal pain possibly secondary to duodenitis or underlying ulcer as noted on CAT scan 2. Elevated LFTs and total bilirubin 3. Fatty liver disease PLAN: -Patient scheduled for EGD with Dr. Milan for tomorrow, 11/15/2020 -Okay for clear liquids today and then nothing by mouth after midnight -Patient started on IV Protonix -Continue antibiotics -Elevated LFTs being followed by medical service -Hypokalemia, potassium replaced -GI prophylaxis Protonix and DVT prophylaxis Lovenox Physician Groover [facility] Turner note has been reviewed by physician. Signing provider agrees with the documented findings, assessment, and plan of care. Past Medical History Past Medical History: No Reported History History of Any Multi-Drug Resistant Organisms: None Reported Past Surgical History: No Surgical Hx Reported Additional Past Surgical History / Comment(s): 3 abscessed teeth removed 10/2020 Past Anesthesia/Blood Transfusion Reactions: No Reported Reaction Past Psychological History: No Psychological Hx Reported Smoking Status: Never smoker Past Alcohol Use History: None Reported Past Drug Use History: None Reported - Past Family History Father Additional Family Medical History / Comment(s): hepatitis, cirrhosis. from a hemorrhage- unsure of what kind Mother Family Medical History: Congestive Heart Failure (CHF), COPD Additional Family Medical History / Comment(s): emphysema, . Medications and Allergies Home Medications Medication Instructions Recorded Confirmed Type No Known Home Medications 12/15/17 11/13/20 History Allergies Allergy/AdvReac Type Severity Reaction Status Date / Time No Known Allergies Allergy Verified 11/13/20 13:21 Surgical - Exam Vital Signs Temp Pulse Resp BP Pulse Ox 98.7 F 97 18 129/85 99 11/13/20 12:07 11/13/20 12:07 11/13/20 12:07 11/13/20 12:07 11/13/20 12:07 Results - Labs 11/14/20 05:51 11/14/20 05:51 Abnormal Lab Results - Last 24 Hours (Table) 11/13/20 11/14/20 11/14/20 Range/Units 13:24 03:20 05:51 Plt Count 116 L (150-450) k/uL Potassium 3.1 L (3.5-5.1) mmol/L Anion Gap (4.00-12.00) mmol/L Creatinine 0.61 L (0.66-1.25) mg/dL Glucose 110 H (74-99) mg/dL Calcium (8.7-10.3) mg/dL Total Bilirubin 1.4 H (0.2-1.3) mg/dL AST 263 H (17-59) U/L ALT 393 H (4-49) U/L Alkaline Phosphatase 161 H (38-126) U/L Urine Protein Trace H (Negative) Urine Ketones 1+ H (Negative) Urine Blood Trace H (Negative) Urine Bacteria Rare H (None) /hpf Urine Mucus Rare H (None) /hpf 11/14/20 Range/Units 05:51 Plt Count (150-450) k/uL Potassium (3.5-5.1) mmol/L Anion Gap 14.50 H (4.00-12.00) mmol/L Creatinine (0.66-1.25) mg/dL Glucose 137 H (74-99) mg/dL Calcium 8.2 L (8.7-10.3) mg/dL Total Bilirubin 1.3 H (0.2-1.3) mg/dL AST 134 H (17-59) U/L ALT 335 H (4-49) U/L Alkaline Phosphatase 152 H (38-126) U/L Urine Protein (Negative) Urine Ketones (Negative) Urine Blood (Negative) Urine Bacteria (None) /hpf Urine Mucus (None) /hpf Diabetes panel 11/13/20 11/14/20 Range/Units 13:24 05:51 Sodium 138 141 (137-145) mmol/L Potassium 3.1 L 3.6 (3.5-5.1) mmol/L Chloride 101 103 (98-107) mmol/L Carbon Dioxide 29 23.5 (22-30) mmol/L BUN 10 9.0 (9-20) mg/dL Creatinine 0.61 L 0.7 (0.66-1.25) mg/dL Glucose 110 H 137 H (74-99) mg/dL Calcium 8.7 8.2 L (8.4-10.2) mg/dL AST 263 H 134 H (17-59) U/L ALT 393 H 335 H (4-49) U/L Alkaline Phosphatase 161 H 152 H (38-126) U/L Total Protein 6.3 6.2 (6.3-8.2) g/dL Albumin 3.8 4.10 (3.5-5.0) g/dL Calcium panel 11/13/20 11/14/20 Range/Units 13:24 05:51 Calcium 8.7 8.2 L (8.4-10.2) mg/dL Albumin 3.8 4.10 (3.5-5.0) g/dL Pituitary panel 11/13/20 11/14/20 Range/Units 13:24 05:51 Sodium 138 141 (137-145) mmol/L Potassium 3.1 L 3.6 (3.5-5.1) mmol/L Chloride 101 103 (98-107) mmol/L Carbon Dioxide 29 23.5 (22-30) mmol/L BUN 10 9.0 (9-20) mg/dL Creatinine 0.61 L 0.7 (0.66-1.25) mg/dL Glucose 110 H 137 H (74-99) mg/dL Calcium 8.7 8.2 L (8.4-10.2) mg/dL Adrenal panel 11/13/20 11/14/20 Range/Units 13:24 05:51 Sodium 138 141 (137-145) mmol/L Potassium 3.1 L 3.6 (3.5-5.1) mmol/L Chloride 101 103 (98-107) mmol/L Carbon Dioxide 29 23.5 (22-30) mmol/L BUN 10 9.0 (9-20) mg/dL Creatinine 0.61 L 0.7 (0.66-1.25) mg/dL Glucose 110 H 137 H (74-99) mg/dL Calcium 8.7 8.2 L (8.4-10.2) mg/dL Total Bilirubin 1.4 H 1.3 H (0.2-1.3) mg/dL AST 263 H 134 H (17-59) U/L ALT 393 H 335 H (4-49) U/L Alkaline Phosphatase 161 H 152 H (38-126) U/L Total Protein 6.3 6.2 (6.3-8.2) g/dL Albumin 3.8 4.10 (3.5-5.0) g/dL
[2020-11-14 16:28] LABS: Hepatitis A Antibody IgM Non-Reactive (Non-Reactive); Hepatitis B Core IgM Non-Reactive (Non-Reactive); Hepatitis B Surface Antigen Non-Reactive (Non-Reactive); Hepatitis C IgG Antibody Non-Reactive (Non-Reactive)
[2020-11-14] MEDS ORDERED: LACTATED RINGERS 1,000 ML IV SCH (19:11)
[2020-11-14] MEDS ORDERED: LIDOCAINE 1% (10MG/ML) FOR IV START INTRADERMA PRN (19:11)
[2020-11-15] MEDS: SODIUM CHLORIDE 0.9% 1,000 ML IV SCH ×2 (00:14→07:36)
[2020-11-15] MEDS: HYDROmorphone 1 MG/ML 1 ML SYRINGE IVP PRN ×3 (00:15→09:29)
[2020-11-15] MEDS: PIPERACILLIN-TAZOBACTAM 3.375 GM in SODIUM CHLORIDE 0.9% 100 ML IVPB SCH ×2 (00:17→07:18)
[2020-11-15 05:37] LABS: Basophils % (A) 1 %; Eosinophils # (A) 0.1 k/uL (0-0.7); Eosinophils % (A) 2 %; HCT 44.5 % (39.0-53.0); HGB 15.2 gm/dL (13.0-17.5); Lymphocytes # (A) 1.4 k/uL (1.0-4.8); Lymphocytes % (A) 27 %; MCH 29.3 pg (25.0-35.0); MCV 86.1 fL (80.0-100.0); Mean Platelet Volume 7.7; Monocytes # (A) 0.5 k/uL (0-1.0); Monocytes % (A) 10 %; Neutrophils % (A) 57 %; Platelet Count 136 k/uL (150-450); RBC 5.17 m/uL (4.30-5.90); RDW 13.4 % (11.5-15.5); WBC 5.3 k/uL (3.8-10.6)
[2020-11-15 05:47] LABS: ALT 216 U/L (4-49); AST 78 U/L (17-59); African American GFR (CKD) >90 (>60 ml/min/1.73 sqM); Albumin 3.3 g/dL (3.5-5.0); Albumin/Globulin Ratio 1.4; Alkaline Phosphatase 116 U/L (38-126); Anion Gap 4 mmol/L; Blood Urea Nitrogen 9 mg/dL (9-20); Calcium 8.2 mg/dL (8.4-10.2); Carbon Dioxide 33 mmol/L (22-30); Chloride 101 mmol/L (98-107); Globulin 2.4 g/dL; Glucose 96 mg/dL (74-99); Non-African American GFR(CKD) >90 (>60 ml/min/1.73 sqM); Potassium 3.4 mmol/L (3.5-5.1); Sodium 138 mmol/L (137-145); Total Bilirubin 0.7 mg/dL (0.2-1.3); Total Protein 5.7 g/dL (6.3-8.2)
[2020-11-15] MEDS: HEPARIN SODIUM,PORCINE/PF 5,000 UNIT/0.5 ML SYRINGE SQ SCH (09:30)
[2020-11-15] MEDS: PANTOPRAZOLE 40 MG/10 ML VIAL IVP SCH (09:30)
[2020-11-15] MEDS: POTASSIUM CHLORIDE 10 MEQ in WATER FOR INJECTION 1 100ML.BAG IVPB SCH ×2 (09:30→10:46)
[2020-11-15] MEDS ORDERED: PROPOFOL 10 MG/ML 20 ML VIAL IV ONE (11:53)
[2020-11-15] MEDS ORDERED: LIDOCAINE 1% INJ 10MG/ML (20 ML MDV) ONE (11:53)
[2020-11-15] MEDS ORDERED: IV FLUID CONTINUATION 1,000 ML IV ONE (11:55)
--- NOTE | 2020-11-15 12:13 | P.OP ---
Date of Procedure: 11/15/20 Preoperative Diagnosis: Gastritis Postoperative Diagnosis: Antral hemorrhagic gastritis Procedure(s) Performed: EGD Anesthesia: MAC Surgeon: Chalino Milan Pathology: other (Antrum) Description of Procedure: The patient's placed on the endoscopy table in the lateral position. C IV sedation. The gastroscope placed oropharynx passed in the esophagus into the stomach. Scope was withdrawn the pylorus. First and second portion of the duodenum appeared normal. Scope was then brought back the antrum and this was severely inflamed. A biopsy was performed. The remainder some appeared normal. There is no significant hiatal hernia. The GE junction was at 40 cm. The distal esophagus appeared normal. The proximal esophagus. Normal. Scope was withdrawn for patient.
[2020-11-15 12:53] VITALS: RESP 17; TEMP 98.3
[2020-11-15 13:23] VITALS: BP 133/95; PULSE 88
--- NOTE | 2020-11-15 13:46 | P.DS ---
Providers Date of admission: 11/13/20 16:09 Expected date of discharge: 11/15/20 Attending physician: Chalino Milan Consults: 11/14/20 11:47 Consult Physician Routine Consulting Provider: Loco Varner Consult Reason/Comments: medical management Do you want consulting provider notified?: Yes Primary care physician: Stated None Hospital Course: Discharge diagnosis 1. Abdominal pain 2. Antral hemorrhagic gastritis status post EGD 3. Fatty liver disease 4. Hypokalemia replaced 5. Dehydration 6. Tachycardia likely related to dehydration now resolved after IV fluids Hospital course This is a 35-year-old male withno medical or surgical history. He presents to the hospital complaints of right upper quadrant, epigastric pain and pain across the upper abdomen for 4 days. He has been having nausea and vomiting. He has been having low-grade temps. He denies any hematemesis. He denies any diarrhea or constipation. He had a computed tomography scan of the abdomen and pelvis that shows mild strandy attenuation noted adjacent to the duodenal bulb and distending portion of the duodenum which may reflect underlying ulcer or duodenitis. Patient denies any previous history of duodenal or peptic ulcer disease. Denies any prior history of EGD. Patient did have a temp of 100.4 on admission and had been tachycardic with a heart rate of 105. Patient is status post EGD which showed antral hemorrhagic gastritis. She was started on a PPI during this admission and will be discharged home with omeprazole. Patient is tolerating diet. His abdominal pain has improved. Patient is stable for discharge. Please refer to chart for any further details. Physician Respiratory Director note has been reviewed by physician. Signing provider agrees with the documented findings, assessment, and plan of care. Patient Condition at Discharge: Stable Plan - Discharge Summary Discharge Rx Participant: No New Discharge Prescriptions: New Omeprazole 40 mg PO DAILY #30 capsule. Discharge Medication List Omeprazole 40 mg PO DAILY #30 capsule. 11/15/20 [Rx] Follow up Appointment(s)/Referral(s): None,Stated [Primary Care Provider] - 1-2 days Chalino Milan MD [STAFF PHYSICIAN] - 11/21/20 Discharge Disposition: HOME SELF-CARE
--- NOTE | 2020-11-15 13:58 | P.PN ---
Subjective Progress Note Date: 11/15/20 - Reason for Consult Hypokalemia, gastritis, duodenitis - History of Present Illness Patient is a 35-year-old male came in with compensative right upper quadrant abdominal pain sharp in nature moderate to severe associated nausea vomiting has been going on for 2 days multiple episodes of nausea vomiting no hematemesis vomiting is nonbilious and nonbloody denied any fever chills diaphoresis patient had an abdominal CT which was concerning for duodenitis ultrasound of the abdomen did not show any gallstones but did show steatohepatitis, patient does h ave elevated liver enzymes patient is bit tachycardic patient was also started on Zosyn by general surgery who is a primary service. He was bit dehydrated and tachycardic on admission which improved with IV fluids 11/15/2020 Patient is seen in follow-up this morning continues to have some nausea although denies any vomiting. Patient is nothing by mouth currently as he is undergoing EGD with surgery today. Patient potassium is 3.4 and will replace, sodium is 138 with a creatinine of 0.62. ALT, AST are trending down and hepatitis panel was negative. CBC within normal limits. Review of systems: Constitutional: No reports of fatigue, fever, or chills Cardiovascular: No reports of chest pain or palpitations Respiratory: No reports of shortness of breath or cough GI: Reports intermittent nausea, no reports of vomiting, or diarrhea : No reports of dysuria or retention Neurovascular: No reports of weakness or numbness All medications have been reviewed Objective - Vital Signs Vital signs: Vital Signs Temp 97.7 F 11/15/20 04:41 Pulse 60 11/15/20 04:41 Resp 18 11/15/20 04:41 BP 131/88 11/15/20 04:41 Pulse Ox 99 11/15/20 04:41 Intake & Output 11/14/20 11/15/20 11/15/20 18:59 06:59 18:59 Intake Total 1140 Output Total 150 Balance -150 1140 Intake: Intake, IV Titration 1140 Amount Piperacillin-Tazobactam 3 100 .375 gm In Sodium Chloride 0.9% 100 ml @ 25 mls/hr IVPB Q8HR [facility] Rx# :[id number] Sodium Chloride 0.9% 1, 1040 000 ml @ 130 mls/hr IV . [id number] [facility] Rx#:[id number] Oral 0 Output: Urine 150 Other: Voiding Method Toilet Toilet # Voids 2 - Exam GENERAL: The patient is alert and oriented x3, not in any acute distress. Obese HEENT: Pupils are round and equally reacting to light. EOMI. No scleral icterus. No conjunctival pallor. Normocephalic, atraumatic. No pharyngeal erythema. No thyromegaly. CARDIOVASCULAR: S1 and S2 present. No murmurs, rubs, or gallops. PULMONARY: Chest is clear to auscultation, no wheezing or crackles. ABDOMEN: Soft mild right and left upper quadrant tenderness on palpation, nondistended, normoactive bowel sounds. No palpable organomegaly. MUSCULOSKELETAL: No joint swelling or deformity. EXTREMITIES: No cyanosis, clubbing, or pedal edema. NEUROLOGICAL: Gross neurological examination did not reveal any focal deficits. SKIN: No rashes. - Labs CBC & Chem 7: 11/15/20 05:15 11/15/20 05:15 Labs: Abnormal Lab Results - Last 24 Hours (Table) 11/14/20 11/15/20 11/15/20 Range/Units 05:51 05:15 05:15 Plt Count 136 L (150-450) k/uL Potassium 3.4 L (3.5-5.1) mmol/L Carbon Dioxide 33 H (22-30) mmol/L Anion Gap 14.50 H (4.00-12.00) mmol/L Creatinine 0.62 L (0.66-1.25) mg/dL Glucose 137 H (70-110) mg/dL Calcium 8.2 L 8.2 L (8.7-10.3) mg/dL Total Bilirubin 1.3 H (0.3-1.2) mg/dL AST 134 H 78 H (14-35) U/L ALT 335 H 216 H (10-49) U/L Alkaline Phosphatase 152 H (41-126) U/L Total Protein 5.7 L (6.3-8.2) g/dL Albumin 3.3 L (3.5-5.0) g/dL Assessment and Plan Assessment: -Abdominal pain and right upper quadrant and probably duodenitis. Patient currently on IV Zosyn along with Protonix twice daily and antiemetics as needed. Patient underwent EGD showing severely inflamed antrum with the distal esophagus appearing normal. Biopsies obtained and will follow-up with surgery outpatient for test results. -Elevated liver enzymes patient has stated hepatitis. AST and ALT ratio is consistent with nonalcoholic steatohepatitis. ALT, AST trending down -Hypokalemia secondary to nausea vomiting and mild dehydration. Potassium repeat today was 3.4 and will replace and recommended outpatient labs to monitor. -Tachycardia secondary to dehydration improved with IV fluids -DVT prophylaxis: Early ambulation Plan: Patient underwent EGD showing severe inflammation of the antrum and biopsies were obtained and patient will follow-up with surgery outpatient for test resu lts. Patient will continue on omeprazole 40 mg daily and discuss with patient about establishing with primary care provider and continuing to follow with surgery for test results. Patient is being discharged by primary service. Will continue to follow during hospitalization. Thank you for this consultation.
== END 2020-11-15 14:55 | disposition home or self-care (01) ==
LOC: EC 11:35 → 5NMEDONC 16:09
PROVIDERS: ADMIT Surgery; ATTEND Surgery
DX: K29.51 Unspecified chronic gastritis with bleeding (principal); E87.6 Hypokalemia; E86.0 Dehydration; K76.0 Fatty (change of) liver, not elsewhere classified; R51.9 Headache, unspecified; R00.0 Tachycardia, unspecified; Z98.818 Other dental procedure status; Z82.49 Family history of ischemic heart disease and other diseases of the circulatory system; Z82.5 Family history of asthma and other chronic lower respiratory diseases; Z83.79 Family history of other diseases of the digestive system
CPT/HCPCS: 96376 ×4; 96366 ×2; 96361; 96365; 96375; 99285; 36415; 88305; 80053 ×3; 80074; 83605; 83690; 84484; 85025 ×3; 81001; 76705; 74177; 43239; G0378 ×3; J2543 ×3; J2270; J2405 ×2; J2001; J1170 ×3; J3480; J2704; C9113 ×2; Q9967; J1644 ×2; 80048

== ENCOUNTER 2023-05-06 13:06 | Emergency (ER) | payer OTHER ==
--- NOTE | 2023-05-06 13:58 | ED ---
General Adult HPI - General Stated complaint: Bladder infection Time Seen by Provider: 05/06/23 13:57 Source: RN notes reviewed - History of Present Illness Initial comments: 38-year-old male presents to the emergency department with a chief complaint of exposure to STD. Patient denies any active signs or symptoms. Jeff feever, dysura, hematuria, flank pain, nausea or vomiting or rashes or lesions. - Related Data Previous Rx's Medication Instructions Recorded Omeprazole 40 mg PO DAILY #30 capsule. 11/15/20 Cephalexin [Keflex] 500 mg PO TID #21 cap 05/06/23 Sulfamethox-Tmp 800-160Mg [Bactrim 1 each PO Q12HR #20 tab 05/06/23 Ds] Allergies Allergy/AdvReac Type Severity Reaction Status Date / Time No Known Allergies Allergy Verified 05/06/23 13:57 Review of Systems ROS Statement: Those systems with pertinent positive or pertinent negative responses have been documented in the HPI. ROS Other: All systems not noted in ROS Statement are negative. Past Medical History Past Medical History: No Reported History History of Any Multi-Drug Resistant Organisms: None Reported Past Surgical History: No Surgical Hx Reported Additional Past Surgical History / Comment(s): 3 abscessed teeth removed 10/2020 Past Anesthesia/Blood Transfusion Reactions: No Reported Reaction Past Psychological History: No Psychological Hx Reported Smoking Status: Never smoker Past Alcohol Use History: None Reported Past Drug Use History: Marijuana - Past Family History Father Additional Family Medical History / Comment(s): hepatitis, cirrhosis. from a hemorrhage- unsure of what kind Mother Family Medical History: Congestive Heart Failure (CHF), COPD Additional Family Medical History / Comment(s): emphysema, . General Exam - General Exam Comments Initial Comments: Visual Physical Exam Vital signs reviewed General: Well-appearing, nontoxic, no acute distress. Head: Normocephalic, atraumatic Eyes: PERRLA, EOMI ENT: Airway patent Chest: Nonlabored breathing Skin: No visual rash, normal skin tone Neuro: Alert and oriented 3 Musculoskeletal: No gross abnormalities Course Vital Signs 05/06/23 05/06/23 13:53 15:16 Temperature 99.2 F Pulse Rate 105 H 90 Respiratory 18 18 Rate Blood Pressure 146/76 126/78 O2 Sat by Pulse 99 100 Oximetry Medical Decision Making - Medical Decision Making I performed the quick note portion of this exam, verbal signature Richa Escobar PA-C ED course: History obtained from patient Triage notes reviewed and agreed with No old charts reviewed ED course: 38 year old male presents with exposure to STD. Patient had a thorough history and physical exam performed. Patient vitals stable. Pt provided prophylactic treatment including flagyl, rocephin and doxycycline. Patient provided script for doxycycline. Discharged in stable condition. Return precautions discussed. Case discussed with Dr. Fregoso ED attending who agrees with plan of care Diagnosis: Exposure to STD Acute Not life threatening - Lab Data Lab Results 05/06/23 05/06/23 Range/Units 14:02 14:02 Urine Color Yellow Urine Appearance Turbid (Clear) Urine pH 6.0 (5.0-8.0) Ur Specific [place] 1.030 (1.001-1.035) Urine Protein 1+ H (Negative) Urine Glucose (UA) Negative (Negative) Urine Ketones Negative (Negative) Urine Blood Small H (Negative) Urine Nitrite Negative (Negative) Urine Bilirubin Negative (Negative) Urine Urobilinogen <2.0 (<2.0) mg/dL Ur Leukocyte Esterase Large H (Negative) Urine RBC 27 H (0-5) /hpf Urine WBC >182 H (0-5) /hpf Urine WBC Clumps Rare H (None) /hpf Urine Mucus Many H (None) /hpf Chlamydia DNA (PCR) Negative (Negative) N.gonorrhoeae DNA Probe Positive A (Negative) Disposition Clinical Impression: Urinary tract infection, Exposure to STD Disposition: HOME SELF-CARE Condition: Stable Instructions (If sedation given, give patient instructions): Urinary Tract Infection in Men (ED) Additional Instructions: please finish your course of antibiotics as prescribed Range from sexual activity until symptoms have resolved Please return to the nearest emergency Department if high fever or blood follow- up Prescriptions: Sulfamethox-Tmp 800-160Mg [Bactrim Ds] 1 each PO Q12HR #20 tab Cephalexin [Keflex] 500 mg PO TID #21 cap Is patient prescribed a controlled substance at d/c from ED?: No Referrals: Eber Melendez MD [Primary Care Provider] - 1-2 days Time of Disposition: 14:54
[2023-05-06 14:01] VITALS: RESP 18; TEMP 99.2
[2023-05-06 14:32] LABS: Appearance,Urine Turbid (Clear); Bilirubin,Urine Negative (Negative); Blood,Urine Small (Negative); Color,Urine Yellow; Glucose,Urine (UA) Negative (Negative); Ketones,Urine Negative (Negative); Leukocyte Esterase,Urine Large (Negative); Mucus,Urine Many /hpf; Nitrite,Urine Negative (Negative); Protein,Urine 1+ (Negative); RBC,Urine 27 /hpf (0-5); Urobilinogen,Urine <2.0 mg/dL (<2.0); WBC,Urine >182 /hpf (0-5)
[2023-05-06] MEDS ORDERED: cefTRIAXone 1,000 MG VIAL (IM USE) IM STA (14:51)
[2023-05-06] MEDS ORDERED: metroNIDAZOLE 500 MG TAB PO STA (14:51)
[2023-05-06] MEDS ORDERED: SULFAMETHOX-TMP 800-160MG 1 EACH TAB PO STA (14:52)
[2023-05-06] MEDS ORDERED: DOXYCYCLINE 100 MG CAP PO STA (14:52)
[2023-05-06 15:36] VITALS: BP 126/78; PULSE 90
[2023-05-08 15:35] LABS: N. gonorrhoeae,PCR Positive (Negative)
[2023-05-08 15:45] LABS: C. trachomatis,PCR Negative (Negative)
== END 2023-05-06 15:17 | disposition home or self-care (01) ==
LOC: EC 13:06
DX: N39.0 Urinary tract infection, site not specified (principal); Z20.2 Contact with and (suspected) exposure to infections with a predominantly sexual mode of transmission; F12.90 Cannabis use, unspecified, uncomplicated
CPT/HCPCS: 81001; 87491; 87591; 99283; 96372; J0696

== ENCOUNTER 2023-05-13 16:05 | Emergency (ER) | payer OTHER ==
[2023-05-13 16:17] VITALS: BP 125/63; PULSE 87; TEMP 97.4
[2023-05-13] MEDS ORDERED: cefTRIAXone 250 MG VIAL IM STA (16:18)
[2023-05-13] MEDS ORDERED: DOXYCYCLINE 100 MG CAP PO STA (16:19)
--- NOTE | 2023-05-13 16:22 | ED ---
General Adult HPI - General Chief complaint: Urogenital Stated complaint: STD-abnormal labs Time Seen by Provider: 05/13/23 16:10 Source: patient, RN notes reviewed Mode of arrival: ambulatory Limitations: no limitations - History of Present Illness Initial comments: 38-year-old male presents to the emergency department for positive STD test. He states that he was here about a week ago and STD screening was performed. Patient states that he got home yesterday that his gonorrhea test was positive. He denies any symptoms at this time. Denies discharge, fever, chills. - Related Data Previous Rx's Medication Instructions Recorded RX: Omeprazole 40 mg PO DAILY #30 capsule. 11/15/20 Cephalexin [Keflex] 500 mg PO TID #21 cap 05/06/23 Sulfamethox-Tmp 800-160Mg [Bactrim 1 each PO Q12HR #20 tab 05/06/23 Ds] Allergies Allergy/AdvReac Type Severity Reaction Status Date / Time No Known Allergies Allergy Verified 05/06/23 13:57 Review of Systems ROS Statement: Those systems with pertinent positive or pertinent negative responses have been documented in the HPI. ROS Other: All systems not noted in ROS Statement are negative. Past Medical History Past Medical History: No Reported History History of Any Multi-Drug Resistant Organisms: None Reported Past Surgical History: No Surgical Hx Reported Additional Past Surgical History / Comment(s): 3 abscessed teeth removed 10/2020 Past Anesthesia/Blood Transfusion Reactions: No Reported Reaction Past Psychological History: No Psychological Hx Reported Smoking Status: Never smoker Past Alcohol Use History: None Reported Past Drug Use History: Marijuana - Past Family History Father Additional Family Medical History / Comment(s): hepatitis, cirrhosis. from a hemorrhage- unsure of what kind Mother Family Medical History: Congestive Heart Failure (CHF), COPD Additional Family Medical History / Comment(s): emphysema, . General Exam Limitations: no limitations General appearance: alert, in no apparent distress Head exam: Present: atraumatic, normocephalic, normal inspection Eye exam: Present: normal appearance, PERRL, EOMI. Absent: scleral icterus, conjunctival injection, periorbital swelling Respiratory exam: Present: normal lung sounds bilaterally. Absent: respiratory distress, wheezes, rales, rhonchi, stridor Cardiovascular Exam: Present: regular rate, normal rhythm, normal heart sounds. Absent: systolic murmur, diastolic murmur, rubs, gallop, clicks Back exam: Present: normal inspection Neurological exam: Present: alert, oriented X3 Psychiatric exam: Present: normal affect, normal mood Skin exam: Present: warm, dry, intact, normal color. Absent: rash Course Vital Signs 05/13/23 16:06 Temperature 97.4 F L Pulse Rate 87 Respiratory 16 Rate Blood Pressure 125/63 O2 Sat by Pulse 98 Oximetry Medical Decision Making - Medical Decision Making Was pt. sent in by a medical professional or institution (, [facility], SHOE REPAIR SUPERVISOR, urgent care, hospital, or residential...) When possible be specific @ -No Did you speak to anyone other than the patient for history (EMS, parent, family, police, friend...)? What history was obtained from this source @ -No Did you review nursing and triage notes (agree or disagree)? Why? @ -I reviewed and agree with nursing and triage notes Were old charts reviewed (outside hosp., previous admission, EMS record, old EKG, old radiological studies, urgent care reports/EKG's, residential records)? Report findings @ -No old charts were reviewed Differential Diagnosis (chest pain, altered mental status, abdominal pain women, abdominal pain men, vaginal bleeding, weakness, fever, dyspnea, syncope, headache, dizziness, GI bleed, back pain, seizure, CVA, palpatations, mental health, musculoskeletal)? @ -gonorrhea, chlamydia, urethritis, prostatitis, this list is not all inclusive EKG interpreted by me (3pts min.). @ -none X-rays interpreted by me (1pt min.). @ -None done CT interpreted by me (1pt min.). @ -None done U/S interpreted by me (1pt. min.). @ -None done What testing was considered but not performed or refused? (CT, X-rays, U/S, labs)? Why? @ -None What meds were considered but not given or refused? Why? @ -None Did you discuss the management of the patient with other professionals (pr ofessionals i.e. , YULISSA, SHOE REPAIR SUPERVISOR, lab, RT, psych nurse, manager social services, sensitizer, teacher, coastal/harbor defense officer, rn case manager)? Give summary @ -No Was smoking cessation discussed for >3mins.? @ -No Was critical care preformed (if so, how long)? @ -No Were there social determinants of health that impacted care today? How? (Homelessness, low income, unemployed, alcoholism, drug addiction, transportation, low edu. Level, literacy, decrease access to med. care, penitentiary, rehab)? @ -No Was there de-escalation of care discussed even if they declined (Discuss DNR or withdrawal of care, Hospice)? DNR status @ -No What co-morbidities impacted this encounter? (DM, HTN, Smoking, COPD, CAD, Cancer, CVA, ARF, Chemo, Hep., AIDS, mental health diagnosis, sleep apnea, morbid obesity)? @ -None Was patient admitted / discharged? Hospital course, mention meds given and route, prescriptions, significant lab abnormalities, going to OR and other pertinent info. @ -discharged. Patient presented to the emergency department for positive STD testing. Patient given dose of rocephin and doxycycline. Prescription sent for doxy. Patient stable at time of discharge. Case discussed with Dr. Fregoso. Undiagnosed new problem with uncertain prognosis? @ -No Drug Therapy requiring intensive monitoring for toxicity (Heparin, Nitro, Insulin, Cardizem)? @ -No Were any procedures done? @ -No Diagnosis/symptom? @ -gonorrhea urethritis Acute, or Chronic, or Acute on Chronic? @ -acute Uncomplicated (without systemic symptoms) or Complicated (systemic symptoms)? @ -uncomplicated Side effects of treatment? @ -No Exacerbation, Progression, or Severe Exacerbation? @ -No Poses a threat to life or bodily function? How? (Chest pain, [place], [place], pneumonia, PE, COPD, DKA, ARF, appy, cholecystitis, CVA, Diverticulitis, Homicidal, Suicidal, threat to staff... and all critical care pts) @ -No Disposition Clinical Impression: Gonorrhea Disposition: HOME SELF-CARE Condition: Stable Instructions (If sedation given, give patient instructions): Sexually Transmitted Diseases (ED) Additional Instructions: Please follow up with your primary care provider. Return to the emergency department for new or worsening symptoms. Is patient prescribed a controlled substance at d/c from ED?: No Referrals: None,Stated [Primary Care Provider] - 1-2 days
[2023-05-13 17:25] VITALS: RESP 18
== END 2023-05-13 17:05 | disposition home or self-care (01) ==
LOC: EC 16:05
DX: A54.01 Gonococcal cystitis and urethritis, unspecified (principal); F12.90 Cannabis use, unspecified, uncomplicated
CPT/HCPCS: 99283; 96372; J0696

== ENCOUNTER 2024-07-29 11:45 | Day surgery (SDC) | payer OTHER ==
[2024-07-27 09:10] VITALS: BMI 20.9
[~2024-07-29 11:45] MED LIST: LACTATED RINGERS 1,000 ML IV SCH; LIDOCAINE 1% (10MG/ML) FOR IV START INTRADERMA PRN; fentaNYL (PF) 50 MCG/ML 2 ML AMP IV PRN
[2024-07-29] MEDS: IV FLUID CONTINUATION 1,000 ML IV ONE (14:17)
[2024-07-29] MEDS: DEXAMETHASONE SOD PHOSPHATE 4 MG/ML 1 ML VIAL IV ONE (14:39)
[2024-07-29] MEDS: ONDANSETRON 4 MG/2 ML VIAL IVP ONE (14:40)
[2024-07-29] MEDS: HEPARIN SODIUM,PORCINE 5,000 UNIT/ML 1 ML VIAL SQ PRN (14:40)
[2024-07-29 15:01] LABS: Basophils # (A) 0.1 k/uL (0-0.2); Basophils % (A) 1 %; Eosinophils # (A) 0.2 k/uL (0-0.7); Eosinophils % (A) 3 %; HCT 50.1 % (39.0-53.0); HGB 16.3 gm/dL (13.0-17.5); Lymphocytes # (A) 1.8 k/uL (1.0-4.8); Lymphocytes % (A) 28 %; MCH 28.7 pg (25.0-35.0); MCHC 32.5 g/dL (31.0-37.0); MCV 88.4 fL (80.0-100.0); Mean Platelet Volume 6.7; Monocytes # (A) 0.6 k/uL (0-1.0); Monocytes % (A) 8 %; Neutrophils # (A) 3.8 k/uL (1.3-7.7); Neutrophils % (A) 58 %; Platelet Count 218 k/uL (150-450); RBC 5.67 m/uL (4.30-5.90); RDW 13.1 % (11.5-15.5); WBC 6.6 k/uL (3.8-10.6)
[2024-07-29] MEDS: MIDAZOLAM 2 MG/2 ML VIAL IV ONE (15:33)
[2024-07-29] MEDS ORDERED: SUCCINYLCHOLINE CHLORIDE 200 MG/10 ML VIAL IV ONE (17:00)
[2024-07-29] MEDS ORDERED: HYDROmorphone (PF) 1 MG/ML ONE (17:00)
[2024-07-29] MEDS ORDERED: ROCURONIUM 10 MG/ML (5 ML VIAL) IV ONE (17:00)
[2024-07-29] MEDS ORDERED: SODIUM CHLORIDE 0.9% (PF) 10 ML VIAL ONE (17:00)
[2024-07-29] MEDS ORDERED: LIDOCAINE 1% INJ 10MG/ML (20 ML MDV) ONE (17:00)
[2024-07-29] MEDS ORDERED: ROPIVACAINE 5 MG/ML 30 ML VIAL ONE (17:00)
[2024-07-29] MEDS ORDERED: fentaNYL (PF) 50 MCG/ML 2 ML AMP ONE (17:00)
[2024-07-29] MEDS ORDERED: NEOSTIGMINE 1 MG/ML 10 ML VIAL ONE (17:00)
[2024-07-29] MEDS ORDERED: DEXAMETHASONE SOD PHOSPHATE 4 MG/ML 1 ML VIAL ONE (17:00)
[2024-07-29] MEDS ORDERED: PROPOFOL 10 MG/ML 20 ML VIAL IV ONE (17:00)
[2024-07-29] MEDS ORDERED: KETOROLAC 15 MG/ML 1 ML VIAL ONE (17:00)
[2024-07-29] MEDS ORDERED: GLYCOPYRROLATE 0.2 MG/ML 2 ML VIAL ONE (17:00)
[2024-07-29] MEDS: BUPIVACAINE (PF) 0.25% 30 ML VIAL SQ ONE (17:30)
[2024-07-29] MEDS: LACTATED RINGERS 1,000 ML IV ONE (18:01)
--- NOTE | 2024-07-29 18:18 | P.OP ---
Date of Procedure: 07/29/24 Preoperative Diagnosis: Right inguinal hernia Postoperative Diagnosis: Right inguinal hernia Procedure(s) Performed: Robotic right inguinal hernia repair with mesh placement Anesthesia: GERARDO Surgeon: Saniya Draper Pathology: none sent Condition: stable Disposition: same day Indications for Procedure: 39-year-old male presents secondary to bulge in the right groin that is beginning to cause him pain. On exam he is found to have a right inguinal hernia. Plan is for robotic right inguinal hernia repair with mesh placement. Risks, benefits and alternatives including major surgical risks of bleeding, infection and mesh complications were discussed prior to attending the operating suite. Operative Findings: Right inguinal indirect hernia Description of Procedure: Patient was brought to the operative suite and placed in supine position on the operating table. Sedation was provided by anesthesia and the patient underwent endotracheal intubation. The patient was then prepped and draped in regular sterile fashion. Supraumbilical incision was made and dissection was carried to the fascia. The fascia was incised and an 8 mm trocar was placed. Pneumoperitoneum was achieved. Similarly two 8 mm trocars were placed 11 cm on either lateral side. The hernia was clearly noted on the right side and was noted to be an indirect inguinal hernia. The robot was then docked appropriately. Incision was then made just lateral to the medial umbilical ligament on the right side with the monopolar scissors and the peritoneal flap was created and was taken down towards Kunal's ligament. The flap was then extended laterally. Attention was then turned to the indirect inguinal hernia. The sac was then freed from the cord all while preserving the cord structures. At this point the indirect hernia was reduced. Once the entire space was ap propriately dissected out, we brought the laparoscopic anatomic pariah Addison ProGrip mesh and unrolled it over the hernia site. Once appropriate in place the peritoneal flap was closed using a running 2 OV lock suture. Once this was completed, we removed all robotic instruments and undocked the robot. The supraumbilical fascial incision was closed with 0 Vicryl suture using the Lee Iverson device. This was done under laparoscopic guidance. All skin incisions were then closed with 4-0 Vicryl subcuticular suture. Sterile dressing was applied. The patient was awakened and taken to postanesthesia care unit in stable condition.
[2024-07-29 18:25] VITALS: TEMP 97
[2024-07-29] MEDS: HYDROmorphone 0.5 MG/0.5 ML SYRINGE IVP PRN (18:43)
[2024-07-29 19:15] VITALS: RESP 17
[2024-07-29 19:45] VITALS: BP 115/66; PULSE 103
--- NOTE | 2024-07-30 11:51 | P.ANPRN ---
Procedure Note - Anesthesia - Nerve Block Performed Bilateral Erector Spinae Single Time Out Performed: Yes Date of Procedure: 07/29/24 Procedure Start Time: 15:18 Procedure Stop Time: 15:24 Location of Patient: PreOp Indication: Acute Post-Operative Pain, Requested by Surgeon Sedation Type: Sedate with meaningful contact maintained Preparation: Sterile Prep Position: Prone Needle Types: Pajunk Needle Gauge: 21 Ultrasound used to visualize needle placement: Yes Ultrasound used to observe medication spread: Yes Blood Aspirated: No Pain Paresthesia on Injection Noted: No Resistance on Injection: Normal Image Stored and Saved: Yes Events: Uneventful and Well Tolerated (ropivacaine 0.5% 15 cc plus normal saline 10 cc plus dexamethasone 4 mg given bilaterally at L1)
== END 2024-07-29 20:18 | disposition home or self-care (01) ==
LOC: OR 11:45
PROVIDERS: ATTEND Surgery
DX: K40.90 Unilateral inguinal hernia, without obstruction or gangrene, not specified as recurrent (principal); G89.18 Other acute postprocedural pain; F12.90 Cannabis use, unspecified, uncomplicated
CPT/HCPCS: 49650; S2900; 64468; 85025